=== PATIENT | male | born 1950 | race Caucasian/White ===

== ENCOUNTER → 2016-09-18 | Outpatient (CLI) | payer OTHER, BC | LOC: LAB 12:14 | PROVIDERS: ATTEND Internal Medicine | DX: E03.9 Hypothyroidism, unspecified (principal); I10 Essential (primary) hypertension | CPT/HCPCS: 36415; 84443 ==

== ENCOUNTER → 2016-11-13 | Outpatient (CLI) | payer OTHER, BC | LOC: MMPC 11:11 | PROVIDERS: ATTEND Internal Medicine | DX: M54.16 Radiculopathy, lumbar region (principal) | CPT/HCPCS: 99214; G0463; J1885 ==

== ENCOUNTER → 2016-11-14 | Outpatient (CLI) | payer OTHER, BC ==
--- NOTE | 2016-11-14 09:30 | DI ---
MRI LUMBAR SPINE SCAN WITHOUT IV CONTRAST, 11/14/2016 7:37 AM: Clinical History: Acute lumbar radiculopathy. Previous Exam: 10/17/2007. Technique: Sagittal and axial T2 weighted; sagittal T1 weighted and T2 STIR; and axial PD. There are motion artifacts on every sequence and several sequences were repeated. Review of the prior scans jailyn w that the patient was also moving during that exam. The vertebral bodies are of normal height and size. The L3 vertebral body has a focus of sclerosis an teriorly and vascular tissue posteriorly interspersed with some fatty tissue consistent with a nilton ioma. This has not changed since the previous exam. There is moderate disc space narrowing from L1-2 through L3-4 and all lumbar disc spaces show desiccation change. The cord terminates at T12 and the c onus medullaris is normal. The T11-12 disc space is normal. The T12-L1 through L2-3 disc spaces show very minimally bulging but not herniated discs without canal or neural foraminal stenosis. L3-4 and L 4-5 have circumferentially bulging but not herniated discs without canal or neural foraminal stenosis . Both have midline disc annulus tears. L5-S1 has a circumferentially bulging but not herniated disc without canal or neural foraminal stenosis. Readin. There is moderate disc space narrowing from L1-2 through L3-4. 2. There are bulging but not herniated discs without canal or neural foraminal stenosis from T12-L1 through L5-S1. There are midline disc annulus tears at L3-4 and L4-5. 3. The T11-12 disc space is normal. 4. L3 vertebral body has marked sclerosis in the anterior half. In the posterior half, there is a co mbination of fatty tissue and fluid, consistent with a hemangioma. This has not changed.
== END ==
LOC: MRI 07:33
PROVIDERS: ATTEND Internal Medicine
DX: M54.16 Radiculopathy, lumbar region (principal); M48.06 Spinal stenosis, lumbar region; M47.817 Spondylosis without myelopathy or radiculopathy, lumbosacral region
CPT/HCPCS: 72148; 99204

== ENCOUNTER → 2016-12-12 | Outpatient (CLI) | payer OTHER, BC | LOC: MMPC 11:11 | PROVIDERS: ATTEND Internal Medicine | DX: I48.2 Chronic atrial fibrillation (principal); I73.9 Peripheral vascular disease, unspecified; N40.0 Benign prostatic hyperplasia without lower urinary tract symptoms; Z98.890 Other specified postprocedural states | CPT/HCPCS: 99214; G0463 ==